=== PATIENT | male | born 1960 | race Caucasian/White ===

== ENCOUNTER 2018-09-23 05:27 | Day surgery (SDC) | payer OTHER ==
[2018-09-16 10:46] LABS: HEMATOCRIT 47.7 % (37.9-51.0); HEMOGLOBIN 16.3 g/dL (13.5-17.0); MEAN CORPUSCULAR HEMOGLOBIN 32.2 pg (27.0-33.4); MEAN CORPUSCULAR HGB CONC 34.2 g/dL (32.0-36.0); MEAN CORPUSCULAR VOLUME 94 fl (80-97); PLATELET COUNT 293 10^3/uL (150-450); RED BLOOD COUNT 5.05 10^6/uL (4.35-5.55); RED CELL DISTRIBUTION WIDTH 13.8 % (11.5-14.0); WHITE BLOOD COUNT 9.2 10^3/uL (4.0-10.5)
--- NOTE | 2018-09-16 11:23 | RADIOLOGY REPORT (SQ) ---
EXAM DESCRIPTION: CHEST PA/LATERAL COMPLETED DATE/TIME: 09/16/2018 11:07 am REASON FOR STUDY: PRE-OP COMPARISON: 04/28/2007 EXAM PARAMETERS: NUMBER OF VIEWS: two views TECHNIQUE: Digital Frontal and Lateral radiographic views of the chest acquired. RADIATION DOSE: NA LIMITATIONS: none FINDINGS: LUNGS AND PLEURA: No opacities, masses or pneumothorax. No pleural effusion. MEDIASTINUM AND HILAR STRUCTURES: No masses or contour abnormalities. HEART AND VASCULAR STRUCTURES: Heart normal size. No evidence for failure. BONES: No acute findings. HARDWARE: None in the chest. OTHER: No other significant finding. IMPRESSION: NO SIGNIFICANT RADIOGRAPHIC FINDING IN THE CHEST. TECHNICAL DOCUMENTATION: JOB ID: [id number] [employer]- All Rights Reserved Reading location - IP/workstation name: [email or web address]
--- NOTE | 2018-09-16 14:07 | EKG REPORT ---
SEVERITY:- NORMAL ECG - SINUS RHYTHM : Confirmed by: Gwyn Lemus MD 16-Sep-2018 14:06:53
[~2018-09-23 05:27] MED LIST: CEFAZOLIN 1 GM/D5W RTU 1 GM/50 ML RTUPB IV ONE
[2018-09-23] MEDS ORDERED: ALBUTEROL SULFATE 0.083% NEB 2.5 MG/3 ML AMPUL NEB ONE (06:14)
[2018-09-23] MEDS ORDERED: DEXAMETHASONE SOD PHOSPHATE INJ 4 MG/1 ML VIAL ONE (06:56)
[2018-09-23] MEDS ORDERED: KETOROLAC TROMETHAMINE 60 MG/2 ML SDV ONE (06:56)
[2018-09-23] MEDS ORDERED: FENTANYL CITRATE INJ/PF 250 MCG/5 ML AMPULE ONE (06:56)
[2018-09-23] MEDS ORDERED: MIDAZOLAM 2 MG/2 ML INJ ONE (06:56)
[2018-09-23] MEDS ORDERED: ONDANSETRON HCL INJ/PF 4 MG/2 ML SDV ONE (06:56)
[2018-09-23] MEDS ORDERED: PROPOFOL INJ 200 MG/20 ML VIAL IV ONE (06:57)
[2018-09-23] MEDS ORDERED: BUPIVACAINE HCL 0.25% /EPINEPHRINE INJ/PF 30 ML SDV ONE (07:08)
[2018-09-23] MEDS ORDERED: KETAMINE HCL INJ 500 MG/10 ML VIAL ONE (07:19)
[2018-09-23] MEDS ORDERED: CEFAZOLIN INJ 1 GM VIAL ONE (07:44)
--- NOTE | 2018-09-23 08:29 | Operative Report ---
Nonrecallable Operative Report DATE OF SURGERY: 09/23/18 PREOPERATIVE DIAGNOSIS: umbilical hernia POSTOPERATIVE DIAGNOSIS: umbilical hernia OPERATION: umbilical herniaorraphy SURGEON: JENNI VITALE 1ST SOUND SYSTEM INSTALLER: KAMLESH THOMAS ANESTHESIA: LMAC TISSUE REMOVED OR ALTERED: none COMPLICATIONS: none ESTIMATED BLOOD LOSS: 0 INTRAOPERATIVE FINDINGS: see dictation PROCEDURE: see dictation
--- NOTE | 2018-09-23 08:31 | Discharge Summary ---
Discharge Summary (SDC) - Discharge Final Diagnosis: umbilical hernia Date of Surgery: 09/23/18 Discharge Date: 09/23/18 Condition: Good Treatment or Instructions: no lifting more than 10bs ok to remove dressing tomorrow reg diet Referrals: BRAXTON RIOS PA-C [Primary Care Provider] - Discharge Diet: As Tolerated Discharge Activity: No Lifting Over 10 Pounds Home Care Assistance: None Needed Report the Following to Your Physician Immediately: Shortness of Breath, Nausea, Vomiting, Increase in Pain, Unusual Bleeding Other Items to Report to MD: fever
[2018-09-23] MEDS ORDERED: OXYCODONE-ACETAMINOPHEN 5-325 MG TABLET PO PRN (08:40)
[2018-09-23] MEDS ORDERED: MORPHINE SULFATE 10 MG/ML INJ IV PRN (08:52)
[2018-09-23] MEDS ORDERED: FENTANYL CITRATE INJ/PF 100 MCG/2 ML AMPUL IV PRN ×2 (08:52)
[2018-09-23] MEDS ORDERED: DIPHENHYDRAMINE HCL 50 MG/ML VIAL IV PRN (08:52)
[2018-09-23] MEDS ORDERED: PROMETHAZINE HCL INJ 25 MG/1 ML VIAL IV PRN ×2 (08:52)
[2018-09-23] MEDS ORDERED: MEPERIDINE HCL/PF INJ 25 MG/1 ML DISP.SYRIN IV PRN (08:52)
[2018-09-23] MEDS: FENTANYL CITRATE INJ/PF 100 MCG/2 ML AMPUL IV PRN ×2 (08:55→09:07)
[2018-09-23] MEDS ORDERED: FENTANYL CITRATE INJ/PF 100 MCG/2 ML AMPUL ONE (08:55)
--- NOTE | 2018-09-23 08:55 | OPERATIVE REPORT E ---
Operative Report NAME: NHUNG HDZ : 1960 AGE: 58Y DATE OF SURGERY: 09/23/2018 ROOM: PREOPERATIVE DIAGNOSIS: Umbilical hernia. POSTOPERATIVE DIAGNOSIS: Umbilical hernia. OPERATIVE PROCEDURE: Umbilical herniorrhaphy. SURGEON: JENNI VITALE M.D. HYDROTEL OPERATOR: MILAN Beckwith who was present for the entire procedure for wound retraction and wound closure. PROCEDURE: The patient was brought to the operating room in an awake, alert, and stable condition, placed on the operating table in a supine position and given IV sedation throughout the procedure. After adequate prep and drape and appropriate time out and site verification, the infraumbilical skin was anesthetized with 1% lidocaine with epinephrine. A curvilinear incision was made on the inferior edge of the umbilical crease, and dissection was carried down through subcutaneous tissue with Bovie cautery. Once we reached the anterior abdominal fascia we identified the umbilical stalk, and that was dissected from the surrounding fatty tissue and encircled with an umbilical tape. It was placed on traction. We then incised the umbilical stalk at its base, making sure not to injure any intra-abdominal structures. There was some omentum that was incarcerated on the umbilical stalk, and that was released with Bovie cautery and returned to the abdominal cavity. Once the umbilical stalk was from the anterior abdominal fascia, the umbilical defect was identified. It was approximately 4 cm in diameter. We then cleared the edges of the surrounding fascia and then used a Ventralex 6 cm round umbilical hernia mesh that was placed into the abdominal cavity and tacked circumferentially around the umbilical fascia with interrupted placed 0-Vicryl sutures. Once this was completed we dusted the top of the mesh with Ancef powder and closed the fascia over the mesh with interrupted #1 Vicryl sutures. The subcutaneous tissue was then reapproximated with interrupted 3-0 Vicryl and the skin was reapproximated with intracuticular 3-0 Biosyn. Steri-Strips completed the procedure. Estimated blood loss was negligible. Sponge and needle counts were correct x2. The patient was awakened in the operating room and transferred to recovery in stable condition, no complications. DICTATING PHYSICIAN: JENNI VITALE M.D. [id number] Y#: [id number] ID: [id number] JOB#: [id number] ACCT: [id number] cc:JENNI VITALE M.D. >
[2018-09-23] MEDS ORDERED: ACETAMINOPHEN 1,000 MG/100 ML RTUPB IV ONE (09:27)
[2018-09-23] MEDS: HYDROMORPHONE HCL INJ/PF 2 MG/ML AMPULE ONE ×6 (09:56→10:53)
[2018-09-23] MEDS ORDERED: OXYCODONE-ACETAMINOPHEN 5-325 MG TABLET ONE (11:36)
[2018-09-23 12:41] VITALS: BP 134/80
[2018-09-23] MEDS ORDERED: LIDOCAINE 2% INJ-PF (20 MG/ML) 2 ML AMPUL ONE (13:27)
[2018-09-23] MEDS ORDERED: GLYCOPYRROLATE 1 MG/5 ML SYRINGE ONE (13:27)
== END 2018-09-23 12:30 | disposition home or self-care (01) ==
LOC: OROUT 05:27
PROVIDERS: ATTEND Surgery
DX: K42.9 Umbilical hernia without obstruction or gangrene (principal); I10 Essential (primary) hypertension; J45.909 Unspecified asthma, uncomplicated; E66.9 Obesity, unspecified; Z68.36 Body mass index [BMI] 36.0-36.9, adult; Z79.899 Other long term (current) drug therapy; Z79.51 Long term (current) use of inhaled steroids
CPT/HCPCS: 49585; 93005; 36415; 85027; 71046; 93010; 94640; C1781 ×2; J2250; J3490 ×4; J0690 ×2; J1100; J1885; J3010 ×2; J1170; J2405; J2704; J0131; 750

== ENCOUNTER 2019-03-24 12:26 | Emergency (ER) | payer OTHER ==
[2019-03-24] MEDS ORDERED: DIPHENHYDRAMINE HCL 50 MG/ML VIAL IV ONE (12:40)
[2019-03-24] MEDS ORDERED: PROCHLORPERAZINE EDISYLATE INJ 10 MG/2 ML VIAL IV ONE (12:40)
[2019-03-24] MEDS ORDERED: KETOROLAC TROMETHAMINE INJ/PF 30 MG/1 ML SDV IV ONE (12:40)
--- NOTE | 2019-03-24 12:43 | ER Document Report ---
ED Medical Screen (RME) - General Chief Complaint: Dizziness Stated Complaint: DIZZY,NAUSEA,VOMITTING,HEADACHE Time Seen by Provider: 03/24/19 12:40 Primary Care Provider: BRAXTON RIOS PA-C [Primary Care Provider] - Follow up as needed TRAVEL OUTSIDE OF THE [place] IN LAST 30 DAYS: No - HPI Notes: 03/24/19 12:40 Patient is a 58-year-old male with a history of hypertension and asthma who presents complaining of having a bilateral temporal headache that is described as a tightness with associated light sensitivity, occasional dizziness, and nausea/vomiting. Patient states that symptoms began this morning. This is not the worst headache of his life and did not start as a thunderclap. Patient states that he has been having headaches like this for the past 6 months. Patie nt states that symptoms associated are present with the headache when he has them. He is urinating normally and having normal bowel movements. Last episode of emesis was this morning. No fever, cough, chest pain, shortness of breath, dyspnea, current abdominal pain, diarrhea. I have treated and performed a rapid initial assessment of this patient. A comprehensive ED assessment and evaluation of the patient, analysis of test results and completion of medical decision making process will be conducted by additional ED providers. PHYSICAL EXAMINATION: GENERAL: Well-appearing, well-nourished and in no acute distress. A&Ox4. Answers questions appropriately. HEAD: Atraumatic, normocephalic. Non-tender. EYES: Pupils equal round and reactive to light, extraocular movements intact, sclera anicteric, conjunctiva are normal. No nystagmus. LUNGS: Breath sounds clear to auscultation bilaterally and equal. No wheezes rales or rhonchi. HEART: Regular rate and rhythm without murmurs, rubs, gallops. ABDOMEN: Soft, nontender, nondistended abdomen. Limited exam in triage Musculoskeletal: Ext b/l: FROM to passive/active. Strength 5+/5. No deficits noted. NEUROLOGICAL: NIH 0. GCS 15. Cranial nerves grossly intact. Normal speech, normal gait. Normal sensory, motor exams. PSYCH: Normal mood, normal affect. - Related Data Allergies/Adverse Reactions: No Known Allergies Allergy (Verified 09/23/18 06:05) Home Medications: Asthma and HTN meds. Past Medical History - Past Medical History Cardiac Medical History: Reports: Hx Hypertension - on meds Denies: Hx Coronary Artery Disease, Hx Heart Attack Pulmonary Medical History: Reports: Hx Asthma - inhalers Denies: Hx Bronchitis, Hx COPD, Hx Pneumonia Neurological Medical History: Denies: Hx Cerebrovascular Accident, Hx Seizures Musculoskeltal Medical History: Reports Hx Arthritis - back - Immunizations Hx Diphtheria, Pertussis, Tetanus Vaccination: Yes Physical Exam - Vital signs Vitals: Temp Pulse Resp BP Pulse Ox 97.8 F 99 18 134/94 H 97 03/24/19 12:30 03/24/19 12:30 03/24/19 12:30 03/24/19 12:30 03/24/19 12:30 Course - Vital Signs Vital signs: Temp Pulse Resp BP Pulse Ox 97.8 F 99 18 134/94 H 97 03/24/19 12:30 03/24/19 12:30 03/24/19 12:30 03/24/19 12:30 03/24/19 12:30 Doctor's Discharge - Discharge Referrals: BRAXTON RIOS PA-C [Primary Care Provider] - Follow up as needed
[2019-03-24 13:19] LABS: ABSOLUTE EOSINOPHILS # (AUTO) 0.2 10^3/uL (0.0-0.6); ABSOLUTE LYMPHOCYTES (AUTO) 2.2 10^3/uL (0.5-4.7); ABSOLUTE MONOCYTES (AUTO) 0.9 10^3/uL (0.1-1.4); ABSOLUTE NEUT (AUTO) 7.2 10^3/uL (1.7-8.2); BASOPHILS % (AUTO) 0.3 % (0-2); EOSINOPHILS % (AUTO) 1.5 % (0-6); HEMATOCRIT 50.6 % (37.9-51.0); HEMOGLOBIN 17.6 g/dL (13.5-17.0); LYMPHOCYTES % (AUTO) 21.3 % (13-45); MEAN CORPUSCULAR HEMOGLOBIN 32.7 pg (27.0-33.4); MEAN CORPUSCULAR HGB CONC 34.8 g/dL (32.0-36.0); MEAN CORPUSCULAR VOLUME 94 fl (80-97); MONOCYTES % (AUTO) 8.8 % (3-13); PLATELET COUNT 295 10^3/uL (150-450); RED BLOOD COUNT 5.38 10^6/uL (4.35-5.55); RED CELL DISTRIBUTION WIDTH 13.3 % (11.5-14.0); SEGMENTED NEUTROPHILS % (AUTO) 68.1 % (42-78); TOTAL CELLS COUNTED % (AUTO) 100 %; WHITE BLOOD COUNT 10.5 10^3/uL (4.0-10.5)
[2019-03-24 13:24] LABS: APPEARANCE,URINE CLEAR; BILIRUBIN,URINE NEGATIVE (NEGATIVE); COLOR,URINE YELLOW; GLUCOSE, URINE NEGATIVE (NEGATIVE); KETONES,URINE NEGATIVE (NEGATIVE); PROTEIN,URINE NEGATIVE (NEGATIVE); URINE SPECIFIC GRAVITY 1.019; UROBILINOGEN,URINE NEGATIVE mg/dL (<2.0)
[2019-03-24 13:42] LABS: ALBUMIN 4.9 g/dL (3.5-5.0); ALKALINE PHOSPHATASE 55 U/L (38-126); ANION GAP 10 (5-19); ASPARTATE AMINO TRANSFERASE 30 U/L (17-59); BILIRUBIN,DIRECT 0.1 mg/dL (0.0-0.4); BILIRUBIN,TOTAL 0.8 mg/dL (0.2-1.3); BLOOD UREA NITROGEN 20 mg/dL (7-20); CALCIUM 10.7 mg/dL (8.4-10.2); CARBON DIOXIDE 30 mmol/L (22-30); CHLORIDE 103 mmol/L (98-107); GLUCOSE 96 mg/dL (75-110); POTASSIUM 4.7 mmol/L (3.6-5.0); TOTAL PROTEIN 7.9 g/dL (6.3-8.2)
[2019-03-24] MEDS: NORMAL SALINE 1000 ML 1,000 ML IV PRN ×2 (13:43→14:50)
--- NOTE | 2019-03-24 15:59 | ER Document Report ---
ED General - General Chief Complaint: Dizziness Stated Complaint: DIZZY,NAUSEA,VOMITTING,HEADACHE Time Seen by Provider: 03/24/19 12:40 Primary Care Provider: BRAXTON RIOS PA-C [Primary Care Provider] - Follow up as needed Notes: 58-year-old history of headaches presents right-sided headache that started earlier today. Patient had associated dizziness, nausea/vomiting. Patient states photophobia and phonophobia. Patient states it was gradual in onset and is not worst of life. Patient describes dizziness as vertigo and states it was worse with moving head. Patient states he has been having intermittent hea daches for the past 6 months that are similar to this. Patient states he has not been seen for these yet. Patient states he usually takes ibuprofen which improves the pain. Patient denies any fevers, neck pain, chest pain, dyspnea. Patient was given migraine cocktail with 2 L of IV fluids with relief of symptoms. TRAVEL OUTSIDE OF THE [place] IN LAST 30 DAYS: No - Related Data Allergies/Adverse Reactions: No Known Allergies Allergy (Verified 09/23/18 06:05) Home Medications: Asthma and HTN meds. Past Medical History - Social History Smoking Status: Unknown if Ever Smoked Family History: None Patient has suicidal ideation: No Patient has homicidal ideation: No - Past Medical History Cardiac Medical History: Reports: Hx Hypertension - on meds Denies: Hx Coronary Artery Disease, Hx Heart Attack Pulmonary Medical History: Reports: Hx Asthma - inhalers Denies: Hx Bronchitis, Hx COPD, Hx Pneumonia Neurological Medical History: Denies: Hx Cerebrovascular Accident, Hx Seizures Musculoskeletal Medical History: Reports Hx Arthritis - back Past Surgical History: Reports: Hx Abdominal Surgery - hernia repair, Hx Or thopedic Surgery - spinal fusion - Immunizations Hx Diphtheria, Pertussis, Tetanus Vaccination: Yes Review of Systems - Review of Systems Notes: Constitutional: Negative for fever. HENT: Negative for sore throat. Eyes: Negative for visual changes. Cardiovascular: Negative for chest pain. Respiratory: Negative for shortness of breath. Gastrointestinal: Positive for nausea and vomiting. Negative for abdominal pain or diarrhea. Genitourinary: Negative for dysuria. Musculoskeletal: Negative for back pain. Skin: Negative for rash. Neurological: Positive for headache and dizziness. Negative for weakness or numbness. 10 point ROS negative except as marked above and in HPI. Physical Exam - Vital signs Vitals: Temp Pulse Resp BP Pulse Ox 97.8 F 99 18 134/94 H 97 03/24/19 12:30 03/24/19 12:30 03/24/19 12:30 03/24/19 12:30 03/24/19 12:30 - Notes Notes: GENERAL: Well-appearing, well-nourished and in no acute distress. HEAD: Atraumatic, normocephalic. EYES: Pupils equal round and reactive to light, extraocular movements intact, sclera anicteric, conjunctiva are normal. NECK: Normal range of motion, supple without lymphadenopathy or JVD. LUNGS: Breath sounds clear to auscultation bilaterally and equal. No wheezes rales or rhonchi. HEART: Regular rate and rhythm without murmurs, rubs or gallops. ABDOMEN: Soft, nontender. No guarding, no rebound. No masses appreciated. EXTREMITIES: Normal range of motion, no pitting or edema. No clubbing or cya nosis. NEUROLOGICAL: Cranial nerves II through XII grossly intact. Normal speech, normal gait. No facial droop. No tongue deviation. 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 Upper/lower extremity strength equal bilaterally. Sensory intact bilaterally. PSYCH: Normal mood, normal affect. SKIN: Warm, Dry, normal turgor, no rashes or lesions noted. Course - Re-evaluation Re-evalutation: 03/24/19 Presentation of a headache that appears to be most consistent with tension versus migrainous type headache. Headache was not maximal in onset, patient has no focal neurologic deficits, no nuchal rigidity, vital signs within normal limits, no papilledema, and patient is overall well in appearance. Based on clinical history and examination I do not suspect an acute subarachnoid hemorrhage, dural venous sinus thrombosis, acute meningitis, or intercranial mass. Given my low clinical suspicion for any acute life-threatening etiology, I do not feel advanced neuro imaging is indicated at this time. Pt received migraine cocktail with relief in symptoms. Pt states he would like to go home. Return precautions discussed. Pt given prescription for fioricet. Close follow up given to PCP. All questions/concerns addressed prior to discharge. - Vital Signs Vital signs: Temp Pulse Resp BP Pulse Ox 97.8 F 99 18 134/94 H 97 03/24/19 12:30 03/24/19 12:30 03/24/19 12:30 03/24/19 12:30 03/24/19 12:30 - Laboratory Result Diagrams: 03/24/19 13:09 03/24/19 13:09 Laboratory results interpreted by me: 03/24/19 03/24/19 13:09 13:09 Hgb 17.6 H Calcium 10.7 H Discharge - Discharge Clinical Impression: Headache Qualifiers: Headache type: unspecified Headache chronicity pattern: acute headache Intractability: not intractable Qualified Code(s): R51 - Headache Condition: Stable Disposition: HOME, SELF-CARE Instructions: Headache ([facility]) Additional Instructions: You have been seen in the Emergency Department (ED) for a headache. Please use Fioricet as prescribed. As we have discussed, please follow up with your primary care doctor as soon as possible regarding today's ED visit and your headache symptoms. Call your doctor or return to the ED if you have a worsening headache, sudden and severe headache, confusion, slurred speech, facial droop, weakness or numbness in any arm or leg, extreme fatigue, or other symptoms that concern you. Prescriptions: Butalb/Acetaminophen/Caffeine [Fioricet (50-325-40 mg) Tablet] 1 - 2 tab PO Q4H #20 tab Forms: Parent Work Note Referrals: BRAXTON RIOS PA-C [Primary Care Provider] - Follow up in 3-5 days
[2019-03-24 16:42] VITALS: BP 133/87
== END 2019-03-24 16:43 | disposition home or self-care (01) ==
LOC: ER 12:26
DX: R51 Headache (principal); R11.2 Nausea with vomiting, unspecified; R42 Dizziness and giddiness; H53.149 Visual discomfort, unspecified; J45.909 Unspecified asthma, uncomplicated; I10 Essential (primary) hypertension; Z79.899 Other long term (current) drug therapy
CPT/HCPCS: 36415; 83690; 85025; 80053; 81001; J1200; J1885; J0780; J7030; 96361; 96374; 96375; 99284

== ENCOUNTER → 2019-07-27 | Outpatient (CLI) | payer OTHER ==
[2019-07-27 10:29] LABS: A TYPE INFLUENZA AG NEGATIVE (NEGATIVE); B INFLUENZA AG NEGATIVE (NEGATIVE)
== END ==
LOC: RDC 09:42
PROVIDERS: ATTEND Registered Nurse
DX: Z20.828 Contact with and (suspected) exposure to other viral communicable diseases (principal)
CPT/HCPCS: 87070; 87635; 87804; 87880